=== PATIENT | female | born 1955 | race Caucasian/White ===

== ENCOUNTER → 2016-09-15 | Outpatient (CLI) | payer BC, OTHER | LOC: HYPER 06:58 | DX: L97.822 Non-pressure chronic ulcer of other part of left lower leg with fat layer exposed (principal); I10 Essential (primary) hypertension; I87.2 Venous insufficiency (chronic) (peripheral); G89.29 Other chronic pain; F32.9 Major depressive disorder, single episode, unspecified; Z87.891 Personal history of nicotine dependence ==

== ENCOUNTER → 2021-08-25 | Day surgery (SDC) | payer BC, OTHER ==
[~2021-08-25] VITALS: Ht 165.1 cm; Wt 90.7 kg
[~2021-08-25] MED LIST: BUPROPION XL300 MG PO; CALCIUM500 MG PO; CELEBREX100 MG/1 C PO; EFFEXOR XR75 MG PO; IRON240 M1 PO; LOSARTAN POTASS50 MG PO; MIRAPEX0.5 MG PO; OMEPRAZOLE 20 M20 M1 PO; PERCOCET 7.5-31 EAC1 PO; ZANAFLEX4 M1 PO
[2021-08-25 07:10] VITALS: BP 139/70
[2021-08-25 08:51] VITALS: BP 139/70
--- NOTE | 2021-08-28 10:03 | O ---
[facility] [place] [address] [place] [address] OPERATIVE REPORT Name: AIDEN GARRISON Room #: REG [facility]#: [id number] Admission: 08/25/21 Attend Phys: Tod Gonzalez MD Discharge: Date of : 57 Report #: [id number] THIS REPORT FOR: cc: FAM - Family physician unknown FAM - Family physician unknown Tod Gonzalez MD ~ DATE OF SERVICE: 08/25/2021 PREOPERATIVE DIAGNOSIS: Failed left vouct-wbo-mhjx amputation. POSTOPERATIVE DIAGNOSIS: Failed left fzsxe-xru-mboa amputation. PROCEDURE: Left lxjjp-kfp-vxin amputation revision. SURGEON: Tod Gonzalez MD PHP DEVELOPER: None. ANESTHESIA: General. ESTIMATED BLOOD LOSS: 5 mL DRAINS: No drains. TOURNIQUET TIME: 25 minutes. DESCRIPTION OF PROCEDURE: The patient brought to the operating room where she was placed under general anesthesia. Once under adequate general anesthesia, her left lower extremity was prepped and draped in a sterile manner. The extremity was elevated and tourniquet placed 300 mmHg. An 8 cm incision was made in the patient's previous scar. This was dissected sharply down to the distal tibia. The soft tissue was then elevated off of the bone distally as well as anteriorly and subsequently, the distal half-inch of the tibia was resected utilizing an oscillating saw and a rongeur. This was then anteriorly bevelled utilizing the oscillating saw and smoothed as well in a rasp-like fashion with the oscillating saw. There were no prominences and no protuberances. Once complete, the wound was then irrigated copiously. The fascia of the gastrocsoleus musculature was then advanced to the periosteum of the tibia anteriorly utilizing #1 Vicryl. The wound was irrigated once again copiously and closed with 2-0 Vicryl in subcutaneous tissues and enzo were used for the skin. The wounds were dressed with Xeroform, 4 x 4's, and sterile soft compressive dressing was placed. Tourniquet was let down at approximately 25 minutes. Toes were pink and warm. Good capillary refill. There were no [facility] [address] [address] OPERATIVE REPORT Name: AIDEN GARRISON Room #: REG [facility].#: [id number] Admission: 08/25/21 Attend Phys: Tod Gonzalez MD Discharge: Date of : 57 Report #: [id number] complications from the procedure. The patient tolerated the procedure well and was taken to the recovery room without incident. <ELECTRONICALLY SIGNED> By: Tod Gonzalez MD 08/28/21 1003 [id number] Tod Gonzalez MD /nt
== END | disposition home or self-care (01) ==
LOC: OR 06:11
PROVIDERS: ATTEND Orthopaedic Surgery Foot and Ankle Surgery
DX: T87.89 Other complications of amputation stump (principal); F32.9 Major depressive disorder, single episode, unspecified; K21.9 Gastro-esophageal reflux disease without esophagitis; Z98.890 Other specified postprocedural states; Z79.899 Other long term (current) drug therapy; Z87.891 Personal history of nicotine dependence; Z90.49 Acquired absence of other specified parts of digestive tract; Z98.41 Cataract extraction status, right eye; Z96.651 Presence of right artificial knee joint; Y83.8 Other surgical procedures as the cause of abnormal reaction of the patient, or of later complication, without mention of misadventure at the time of the procedure; Z98.51 Tubal ligation status
CPT/HCPCS: 50010; 50101; 50386; 51412; 53000; 56524; 57091; 57180; 62110; 62900; 70005